=== PATIENT | male | born 1970 | race Caucasian/White ===

== ENCOUNTER 2021-02-23 14:33 | Emergency (ER) | payer BC, SELFPAY ==
--- NOTE | 2021-02-23 15:17 | XR_ITS ---
PROCEDURE: XR CHEST 2V CLINICAL HISTORY: cough, congestion COMPARISON: No exams were available for comparison FINDINGS: The cardiomediastinal silhouette and pulmonary vascularity are within normal limits. Patchy density noted in the lingula may be due to an area viral pneumonitis. 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
--- NOTE | 2021-02-23 16:59 | HMH.EDUTC ---
[facility] [place] Disposition Clinical Impression: COVID-19, Viral pneumonia Disposition: Home, Self-Care Condition on Discharge: Good Instructions: Pneumonia-Adult, DI for COVID-19 (Suspected or Confirmed ), Preventing the Spread of Coronavirus Discharge Instructions Additional Instructions: Drink plenty of fluids. Take tylenol or ibuprofen for pain or fever. Keep taking the medication that was prescribed by your doctor. Take the medications as directed. Follow up with your regular doctor. GO TO THE ER FOR ANY WORSENING SYMPTOMS Quarantine until you know the results of your covid-19 test. If it is positive, the health department should call you and give you further instructions about your length of Quarantine and other things. Notify your school or workplace of your results and follow their instructions regarding return to work/school. The cough medication (promethazine dm) will make you drowsy, so don't drive or operate heavy machinery after taking it. Notify your Primary care physician that you have covid-19 and pneumonia. They will want to follow you closely. Sometimes bamlanivimab and etesevimab injections are ordered to help treat this, but usually you primary care doctor is the one that follows you and orders this if it becomes needed. Follow your diabetic diet and blood sugars closely while you are on the steroids (dexamethazone). It will make your blood sugar go up some. Prescriptions: Albuterol Sulfate [Albuterol Sulfate Hfa] 2 puffs IH Q6HP PRN 30 Days #1 [email or web address] PRN Reason: Shortness Of Breath Transmission Status: Received by [id number] Promethazine/Dextromethorphan [Promethazine-Dm Syrup] 5 ml PO Q6HP PRN #240 syrup PRN Reason: Cough Transmission Status: Received by [id number] dexAMETHasone [Decadron] 6 mg PO DAILY 6 Days #6 tab Transmission Status: Received by [id number] Referrals: María Bailey MD [Primary Care Provider] - Forms: Work/School Release Time of Disposition: 17:08 Medical Decision Making - Medical Records Medical records reviewed: No: I reviewed the patient's medical records. - Tripp Inquiry Pt receiving controlled substance: No Vital Signs: 02/23/21 17:12 02/23/21 17:14 Temperature 98.4 F 98.4 F Temperature Source Oral Pulse Rate 91 H Pulse Rate [Left] 93 H Respiratory Rate 20 22 Blood Pressure 118/89 Blood Pressure [Right Arm] 120/87 Blood Pressure Mean [Right Arm] 98 02 Sat by Pulse Oximetry 95 - Radiology Data #1 Image(s): Chest Image Reviewed: Yes I reviewed the patient's radiology image, Yes I have reviewed radiologist's interpretation Preliminary Findings: Abnormal PROCEDURE: XR CHEST 2V CLINICAL HISTORY: cough, congestion COMPARISON: No exams were available for comparison FINDINGS: The cardiomediastinal silhouette and pulmonary vascularity are within normal limits. Patchy density noted in the lingula may be due to an area viral pneumonitis. 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 [facility] [place] HPI - General Stated complaint: chest congestion, covid positive 10 days Time Seen by Provider: 02/23/21 16:59 - History of Present Illness Provider Complaint: He was diagnosed with Covid-19 around 10 days ago. He states that he began to feel better after about 3 days, but then about 2 days ago he began to have worsening fatigue, cough and congestion. - Related Data Home Medications Medication Instructions Recorded Confirmed alcohol swabs pad TOPICAL 09/04/19 09/04/19 empagliflozin 10 mg tablet 10 mg PO DAILY tab 09/04/19 09/04/19 lansoprazole 15 mg capsule,delayed 15 mg PO DAILY cap 09/04/19 09/04/19 release lisinopril 40 mg tablet 40 mg PO DAILY tab 09/04/19 03
[2021-02-23 17:12] VITALS: BP 120/87; PULSE 93; RESP 20; TEMP 36.9; O2SAT 95; BMI 34.3
[2021-02-23 17:14] VITALS: BP 118/89; PULSE 91; RESP 22; TEMP 36.9
== END 2021-02-23 17:14 | disposition home or self-care (01) ==
PROVIDERS: Emergency Provider Nurse Practitioner Family; PCP Family Medicine
DX: J12.82 Pneumonia due to coronavirus disease 2019 (principal); I10 Essential (primary) hypertension; E11.9 Type 2 diabetes mellitus without complications; E78.5 Hyperlipidemia, unspecified; Z79.899 Other long term (current) drug therapy
CPT/HCPCS: 71046; 99202; G0463

== ENCOUNTER → 2021-07-12 20:06 | Outpatient (CLI) | payer BC, SELFPAY | PROVIDERS: Visit Provider Nurse Practitioner Family | DX: U07.1 COVID-19 (principal) | CPT/HCPCS: C9803; U0003; U0005 ==